=== PATIENT | male | born 1965 | race Caucasian/White ===

== ENCOUNTER → 2024-01-17 09:26 | Outpatient (CLI) | payer OTHER, SELFPAY ==
--- NOTE | 2024-01-17 | DI.RAD.S_ITS ---
PROCEDURE: XR THORACIC SPINE 2V INDICATIONS: back pain TECHNIQUE: 2 views of the thoracic spine were acquired. COMPARISON: [facility], MR, MR LUMBAR SPINE WITHOUT CONTRAST, 09/30/2023, 10:35. FINDINGS: The visualized thoracic vertebral body heights are preserved. The intervertebral disc heights are preserved. The thoracic kyphosis is preserved. No lytic or blastic lesions. The visualized chest and abdomen are within normal limits. IMPRESSION: No acute radiographic abnormality of the thoracic spine. Dictated by: David Walsh M.D. on 01/17/2024 at 13:59 Approved by: David Walsh M.D. on 01/17/2024 at 14:02
== END ==
PROVIDERS: Referring Provider Chiropractor; Visit Provider Chiropractor
DX: M54.9 Dorsalgia, unspecified (principal)
CPT/HCPCS: 72070